=== PATIENT | female | born 1945 | race Caucasian/White ===

== ENCOUNTER → 2017-08-04 | Outpatient (CLI) | payer MEDICARE ==
--- NOTE | 2017-08-04 16:24 | MAM ---
EXAM DESCRIPTION: 3D Diagnostic, Bilateral: Digital Mammography CLINICAL HISTORY: 71 yearsFemale palpable mass lower outer quadrant left breast posterior. Patient noticed within the past week. No family history of breast cancer. Postmenopausal. COMPARISON: 2-D digital screening bilateral study 05/16/2014. Targeted left breast ultrasound following this examination.. No prior reports available. TECHNIQUE: Bilateral CC LM MLO projection full-field images, 3-D tomosynthesis digital mammographic technique. Also bilateral synthesized CC MLO LM full-field images. CAD not utilized. FINDINGS: The breast parenchymal density pattern is: Almost entirely fatty. No skin thickening or nipple retraction bilateral intramammary lymph nodes. Bilateral solitary microcalcifications. Mass in the posterior third of the left breast abutting the pectoral muscle with partially well-defined and lobulated borders. Solitary microcalcification. Dimensions are approximately 1.6 x 1.1 cm. Anterior borders are somewhat indistinct. Increased density compared to the surrounding mostly fatty tissues. Not present on the prior study. Skin marker placement lateral skin where mass is palpable. Coarse calcifications in the middle third of the breast associated with soft tissue density. Skin mole on the posterior medial inner left breast. Pacemaker in the left axilla abutting a lymph node. No focal, stellate mass or density, focal asymmetry , and no suspicious microcalcifications right breast. ULTRASOUND: Scanning of the 400 clock position of the left breast from the nipple to 6 cm posterior, where mass is palpable. Heterogeneous hypoechoic mass within 2 cm of the skin surface. No skin thickening. Mostly circumscribed margin with irregular and lobulated shape. Nonparallel orientation. Posterior edge shadowing with mostly posterior central enhancement. Minimally vascular. Dimensions are 2.7 x 2.4 cm. Differential includes reactive lymph node and neoplasm. IMPRESSION: BI-RADS CATEGORY 4: SUSPICIOUS. SUB-CATEGORY 4A - LOW SUSPICION FOR MALIGNANCY. Surgical consultation and tissue diagnosis should be considered. The FINDINGS and follow-up plan were reviewed in person with the patient following the examination. Written communication explaining the IMPRESSION and follow-up will be mailed to the patient and referring care provider. CRITICAL COMMUNICATION: The critical value was discussed directly by phone with Dr. Mcdonald at approximately 1615 hours, on August 04, 2017. Electronically signed by: Yousuf Martinez MD 08/04/2017 4:23 PM MANAGER CREDIT RISK
--- NOTE | 2017-08-04 16:25 | US ---
EXAM DESCRIPTION: Breast,Left: Ultrasound CLINICAL HISTORY: 71 yearsFemaleBREAST LUMP. Palpable on the lower outer quadrant left breast. COMPARISON: Digital 3-D tomosynthesis bilateral breasts on this visit TECHNIQUE: Transcutaneous scanning of the lower inner quadrant left breast utilizing two-dimensional and Doppler modes. Scanning performed by the contact lens cutter and Dr. Martinez. FINDINGS: Scanning of the 400 clock position of the left breast from the nipple to 6 cm posterior, where mass is palpable. Heterogeneous hypoechoic mass within 2 cm of the skin surface. No skin thickening. Mostly circumscribed margin with irregular and lobulated shape. Nonparallel orientation. Posterior edge shadowing with mostly posterior central enhancement. Minimally vascular. Dimensions are 2.7 x 2.4 cm. Differential includes reactive lymph node and neoplasm. IMPRESSION: 1. BI-RADS CATEGORY: 4 - SUSPICIOUS. SUB - CATEGORY 4A: LOW SUSPICION FOR MALIGNANCY. 2. Please refer to digital bilateral 3-D tomosynthesis diagnostic mammographic examination and report on this visit. The FINDINGS and the follow-up plan were reviewed in person with the patient after the examination. Written communication explaining the IMPRESSION and follow-up will be mailed to the patient and referring care provider. CRITICAL COMMUNICATION: The critical value was discussed directly by phone with Dr. Mcdonald at approximately 1615 hours, on August 04, 2017. Electronically signed by: Yousuf Martinez MD 08/04/2017 4:23 PM [facility]
== END | disposition home or self-care (01) ==
LOC: MAMMO 12:50
PROVIDERS: ATTEND General Practice
DX: N63.20 Unspecified lump in the left breast, unspecified quadrant (principal)
CPT/HCPCS: 76641; G0204; G0279

== ENCOUNTER → 2017-09-14 | Outpatient (CLI) | payer MEDICARE ==
--- NOTE | 2017-09-14 11:00 | OP ---
DATE OF PROCEDURE: 09/14/17 PREOPERATIVE DIAGNOSIS: 1. Abnormal left mammogram with mass at 4 o'clock. POSTOPERATIVE DIAGNOSIS: 1. Abnormal left mammogram with mass at 4 o'clock. PROCEDURE: 1. Sonographically guided needle core biopsy, left breast mass. SURGEON: Jose Carlos Wood MD. BILINGUAL KINDERGARTEN TEACHER: None. ANESTHESIA: Local infiltration of 1% lidocaine. INDICATION: The patient is a 71-year-old female who on mammography was found to have a mass at the 4 o'clock position. It was solid in nature. She was brought to the Ultrasound Suite today for biopsy. FINDINGS: The ultrasound device revealed the needle within the specimen on both the plain and 90 degree ultrasound pictures. Pathology is pending. PROCEDURE: The patient was placed in the supine position and the left arm was extended. The breast was examined and then the medial aspect of the breast was prepped with Betadine and painted. Local infiltration of anesthesia was obtained with 1% lidocaine and then a stab wound was made with a 15 blade and then multiple passes were made with the biopsy device and a small amount of tissue was obtained. Hemostasis was obtained with pressure. A simple suture was used to close the incision with 4-0 Nylon. When this was done, sterile pressure dressings were applied. The specimen was sent for pathologic evaluation. The patient tolerated the procedure well. Estimated blood loss was less than 5 mL. #[id number] [facility]
--- NOTE | 2017-09-14 18:00 | US ---
EXAM DESCRIPTION: Biopsy/Needle Guidance CLINICAL HISTORY: 71 years Female LEFT BREAST MASS COMPARISON: Diagnostic ultrasound of the left breast and diagnostic 3-D tomosynthesis mammogram on 08/04/2017. TECHNIQUE: The procedure was performed by Dr. Wood. Repeat ultrasound localized the lesion at the 9:00 position of the posterior left breast near the chest wall. Sterile preparation. Sterile ultrasound guidance. FINDINGS: The mass is well demonstrated on multiple images. Multiple images show the needle within the mass on orthogonal views. IMPRESSION: Successful, ultrasound-guided fine-needle core biopsy of left breast mass. Adequate core samples were obtained. Pathology examination at remote facility, results pending. Electronically signed by: Yousuf Martinez MD 09/14/2017 5:59 PM DURALUMIN METALWORKER Workstation: [id number]
== END | disposition home or self-care (01) ==
LOC: US 08:10
PROVIDERS: ATTEND Surgery
DX: N63.23 Unspecified lump in the left breast, lower outer quadrant (principal)

== ENCOUNTER → 2017-09-19 | Outpatient (CLI) | payer MEDICARE ==
--- NOTE | 2017-09-19 23:55 | RAD ---
Examination: XR CHEST 2 VIEWS dated 09/19/2017 3:18 PM LAW OFFICE ASSISTANT History: CA LT BREAST Comparison: 03/20/2015 Technique: Frontal and lateral views of the chest Findings: No pulmonary mass. No pneumothorax or pleural effusion. Aortic atherosclerosis. Normal cardiac silhouette. Left cardiac pacer. No large osseous lesion. Impression: No pulmonary masses. Electronically signed by: Robi uLong MD 09/19/2017 11:54 PM LAW OFFICE ASSISTANT
== END | disposition home or self-care (01) ==
LOC: LAB.O 14:55
PROVIDERS: ATTEND Surgery
DX: C50.512 Malignant neoplasm of lower-outer quadrant of left female breast (principal)

== ENCOUNTER → 2017-09-22 | Outpatient (CLI) | payer MEDICARE ==
--- NOTE | 2017-09-22 16:15 | RAD ---
EXAM DESCRIPTION: Chest,2 Views CLINICAL HISTORY: CANCER LEFT BREAST COMPARISON: September 19, 2017 FINDINGS: Frontal and lateral views of the chest. Dual-lead left chest cardiac pacemaker in stable position. Cardiac silhouette and pulmonary vascularity are within normal limits. Calcific atherosclerosis noted of the aortic arch. Lungs are clear without focal consolidative infiltrates. No pleural effusion. No pneumothorax. Cholecystectomy clips in the right upper abdominal quadrant. IMPRESSION: 1. No radiographic evidence of acute cardiopulmonary disease. 2. Other findings as above. Electronically signed by: David Shelby MD 09/22/2017 4:14 PM [facility]
== END | disposition home or self-care (01) ==
LOC: NM 08:23
PROVIDERS: ATTEND Surgery
DX: C50.512 Malignant neoplasm of lower-outer quadrant of left female breast (principal)

== ENCOUNTER → 2017-10-13 | Outpatient (CLI) | payer MEDICARE ==
--- NOTE | 2017-10-15 14:36 | RAD ---
EXAM DESCRIPTION: Knee,Left Complete CLINICAL HISTORY: 71 years Female, ABNORMAL BONE SCAN, BREAST CA COMPARISON: None. FINDINGS: 3 views of the left knee show no acute fracture or malalignment. The joint spaces are fairly well-maintained. There is a questionable left knee joint effusion. No focal bone lesion. IMPRESSION: Questionable left knee joint effusion, otherwise unremarkable exam. Electronically signed by: Roger Ricketts MD 10/15/2017 2:35 PM STORY EDITOR
--- NOTE | 2017-10-15 14:39 | RAD ---
EXAM DESCRIPTION: Lumbar Spine 3 Views CLINICAL HISTORY: 71 years Female, ABNORMAL BONE SCAN, BREAST CA COMPARISON: Bone scan September 22, 2017 FINDINGS: 3 views of the lumbar spine show compression of the L3 body, questionable acuity. No additional vertebral body fracture or subluxation is identified. There are moderate to moderately advanced degenerative changes at multiple levels in the lumbar spine including disc space narrowing at L2-3, L3-4 and L5-S1. Mural calcifications are present in the abdominal aorta without aneurysm. IMPRESSION: Compression deformity of the L3 body, questionable acuity. No definite activity at this level on recent bone scan, but findings are new from February,. MRI should be considered for further evaluation. Moderately advanced multilevel degenerative changes elsewhere in the lumbar spine including degenerative disc and facet joint disease. Atherosclerotic vascular disease. Electronically signed by: Roger Ricketts MD 10/15/2017 2:38 PM [facility]
== END ==
LOC: LAB.O 10:23
PROVIDERS: ATTEND Surgery
DX: C50.512 Malignant neoplasm of lower-outer quadrant of left female breast (principal); R93.7 Abnormal findings on diagnostic imaging of other parts of musculoskeletal system; M25.462 Effusion, left knee; M51.36 Other intervertebral disc degeneration, lumbar region; I70.0 Atherosclerosis of aorta

== ENCOUNTER 2017-10-21 05:44 | Inpatient (IN) | payer MEDICARE ==
[2017-10-21] MEDS ORDERED: SODIUM CHLORIDE 0.9% 50 ML VIAL ONE (07:00)
[2017-10-21] MEDS ORDERED: PROPOFOL 200 MG/20 ML VIAL IV ONE (07:00)
[2017-10-21] MEDS ORDERED: PHENYLEPHRINE INJ 1ML 10 MG/ML VIAL ONE (07:00)
[2017-10-21] MEDS ORDERED: LACTATED RINGERS 1,000 ML ONE ×2 (07:12→09:51)
[2017-10-21] MEDS ORDERED: levoFLOXacin 500MG IV 100 ML IVPB ONE (07:12)
[2017-10-21] MEDS ORDERED: fentaNYL CITRATE INJ 50 MCG/ML AMP ONE (07:56)
[2017-10-21] MEDS ORDERED: MIDAZOLAM INJ 2 MG/2 ML VIAL ONE (07:56)
[2017-10-21] MEDS ORDERED: LIDOCAINE 2 % GEL 5 ML TUBE TOP ONE (07:56)
[2017-10-21] MEDS ORDERED: ROCURONIUM BROMIDE 10 MG/ML VIAL ONE (07:57)
[2017-10-21] MEDS ORDERED: ONDANSETRON INJ 4 MG/2 ML VIAL IV PRN (12:37)
[2017-10-21] MEDS: MORPHINE SULFATE INJ 10 MG/ML VIAL IV PRN ×6 (13:04→18:35)
--- NOTE | 2017-10-21 13:06 | OP ---
DATE OF PROCEDURE: 10/21/17 PREOPERATIVE DIAGNOSIS: 1. Biopsy-proven carcinoma of the left breast. POSTOPERATIVE DIAGNOSIS: 1. Biopsy-proven carcinoma of the left breast. PROCEDURE: 1. Left modified radical mastectomy. SURGEON: Jose Carlos Wood MD. MARINA DRY DOCK MANAGER: None. ANESTHESIA: General laryngeal mask anesthesia. INDICATION: The patient is a 71-year-old female with biopsy-proven mucinous carcinoma of the left breast. Metastatic workup is believed to be negative. After discussion of the surgical options including the fact that she has a pacemaker on the left, she was brought to the Surgical Suite today for left modified radical mastectomy after the risks, benefits and alternatives to the procedure were discussed and accepted. FINDINGS: The mass was palpable, mobile and is within the specimen. There were also palpable nodes in the axilla. Long thoracic nerve of Mathews and thoracodorsal bundle were identified. At the end of the procedure, both the pacemaker worked and the nerves were stimulated proximally with the action of the muscles positively. PROCEDURE: The patient was brought to the Surgical Suite and placed in supine position. She underwent general laryngeal mask anesthesia. At this point, the magnet was placed on the patient and her rhythm changed to what appeared to be a ventricular tachycardia and her pressure dropped, however, after decreasing the anesthesia, the pressure came up. We then took the magnet off and there was no changed. At this point, she was prepped and draped in the usual sterile manner with the magnet in place. A surgical time-out was taken. At this point , an elliptical incision was fashioned around the biopsy site and the areolar. It was generally fashioned transversely with a slight uptake laterally. The superior incision was then made with a sharp knife. Dissection was carried down through the skin edges carefully with minimal cautery. [place] clamps were placed on the superior flap and the superior flap was taken medially to the sternum, superiorly to the clavipectoral fascia except inferiorly to the pacemaker. In the area of the pacemaker and the lateral aspect of the superior flap, Metzenbaum scissors were used for taking down the breast tissue. When this was done, a moist sponge was placed under the flap and the inferior flap was taken in a like manner down, first with a sharp knife and then with electrocautery using the [place] finely grasping forceps. This dissection was carried laterally into the axilla and inferiorly into the rectus fascia. When this was done, the breast was taken off the chest wall using a sharp knife generally and a minimal amount of electrocautery. Dissection was then carried laterally into the axilla. At this point, the superior portion of the axilla was dissected using blunt dissection and minimal electrocautery and also clamps and ligatures of 3-0 Vicryl. The vein was identified and then the thoracodorsal bundle and long thoracic nerve of Mathews were identified. The tissue inferior to the vein and between and anterior to the nerves was taken en bloc with the breast. When this was dissected from the field, it was taken off the field and placed in formalin. At this point, the wound was irrigated with saline. A few small active bleeders were controlled with electrocautery. At this point, the pacemaker magnet was removed and it went immediately back to a paced rhythm. The nerves, as noted, were stimulated proximally with traction of the muscles. At this point, two 15-Guamanian round RIK drains were introduced through stab wounds in the lower flap, one in the axilla , the other on the chest wall. They were sutured in place with 3-0 Nylon ligatures. When this was done, the wound was closed with running 3-0 Vicryl sutures. Once these were in place, the wound was irrigated through the incision and placed to suction drainage. The skin edges were approximated with a skin stapler. Sterile pressure dressing was applied. The patient was awakened and taken to the Recovery Room in stable condition. Estimated blood loss was approximately 250 to 300 mL. All sponge, needle and instrument counts were correct. #[id number] [facility]
--- NOTE | 2017-10-21 13:12 | HP ---
CHIEF COMPLAINT: Biopsy-proven carcinoma of the left breast. HISTORY OF PRESENT ILLNESS: The patient is a 71-year-old female who was found to have a left breast mass. Needle core biopsy revealed a mucinous carcinoma. Metastatic workup was negative. After lengthy discussions about possible treatments, she was brought to the Surgical Suite today for left modified radical mastectomy. PAST MEDICAL HISTORY: 1. Hypertension. 2. Arrhythmias. 3. Headaches. 4. Hard of hearing. 5. Chronic back pain. 6. Arthritis. 7. Pacemaker. PAST SURGICAL HISTORY: 1. Cholecystectomy. 2. Hysterectomy. 3. Pacemaker placement. ALLERGIES: PENICILLIN, ASPIRIN. FAMILY HISTORY: Noncontributory. SOCIAL HISTORY: No history of tobacco or alcohol abuse. REVIEW OF SYSTEMS: There has been no weight loss, no cough, no chest pain, no shortness of breath. She denies urinary symptoms or change in her bowel habits. PHYSICAL EXAMINATION: GENERAL: The patient is awake, alert, cooperative, in no acute distress. VITAL SIGNS: The patient is normotensive. HEENT: Sclerae nonicteric. Mucous membranes moist. NECK: Without adenopathy. BACK: Without CVA tenderness. CHEST: Right breast is without lesion. Left breast reveals a palpable mass at 4 o'clock that is mobile. There are no skin changes. There is a pacemaker in the infraclavicular area laterally on the left. There is no palpable lymphadenopathy in either axilla. LUNGS: Equal breath sounds bilaterally. HEART: Regular rhythm. ABDOMEN: Soft, benign without mass or megaly. PELVIC/RECTAL: Deferred. EXTREMITIES: Without cyanosis, clubbing or edema. LABORATORY: Hemoglobin 13, white count 6.1, neutrophils 65%, platelet count 270 ,000. Urine was essentially clear although it was concentrated at 1.030. Creatinine 0.84, potassium 3.7. Liver functions within normal limits other than alkaline phosphatase elevated at 141. EKG showed a normal sinus rhythm. Chest x-ray was clear. ASSESSMENT: 1. Biopsy-proven carcinoma of the left breast. PLAN: Admission for left modified radical mastectomy under general anesthesia. She will be given preoperative Levaquin due to her penicillin allergy. [facility][id number] [facility]
[2017-10-21] MEDS ORDERED: KETOROLAC TROMETHAMINE INJ 30 MG/ML VIAL ONE (13:31)
[2017-10-21] MEDS: LACTATED RINGERS 1,000 ML IVS PRN (16:30)
[2017-10-21] MEDS: ENOXAPARIN SODIUM 40 MG/0.4 ML SYG SUBCU SCH (20:17)
[2017-10-22] MEDS: LACTATED RINGERS 1,000 ML IVS PRN (02:28)
[2017-10-22] MEDS: MORPHINE SULFATE INJ 10 MG/ML VIAL IV PRN ×2 (02:28→08:23)
[2017-10-22] MEDS: PANTOPRAZOLE SODIUM TAB 40 MG PO SCH (06:00)
[2017-10-22] MEDS ORDERED: levoFLOXacin 500MG IV 500 MG in PREMIX BAG 1 BAG IVPB SCH (08:00)
[2017-10-22] MEDS ORDERED: levoFLOXacin 500MG IV 100 ML IVPB ONE (08:17)
[2017-10-22] MEDS: ENOXAPARIN SODIUM 40 MG/0.4 ML SYG SUBCU SCH (09:38)
[2017-10-22] MEDS: URSODIOL 250 MG PO SCH (10:48)
[2017-10-22] MEDS: LISINOPRIL 10 MG TAB PO SCH (10:50)
[2017-10-22] MEDS ORDERED: SODIUM CHLORIDE 0.9% (FLUSH) 10 ML SYG IV PRN (11:18)
[2017-10-22] MEDS ORDERED: IV SET AND CAP CHANGE INJ INJ SCH (11:30)
[2017-10-22] MEDS: HYDROcodone 5MG/APAP 325MG 1 EA TAB PO PRN (18:07)
[2017-10-22] MEDS: SODIUM CHLORIDE 0.9% (FLUSH) 10 ML SYG IV SCH (20:39)
[2017-10-22] MEDS ORDERED: MONTELUKAST 10 MG TAB PO SCH (21:00)
[2017-10-23] MEDS: HYDROcodone 5MG/APAP 325MG 1 EA TAB PO PRN ×2 (00:38→07:48)
[2017-10-23] MEDS: PANTOPRAZOLE SODIUM TAB 40 MG PO SCH (06:13)
[2017-10-23] MEDS: URSODIOL 250 MG PO SCH (08:30)
[2017-10-23 09:56] VITALS: O2SAT 97
[2017-10-23] MEDS: ENOXAPARIN SODIUM 40 MG/0.4 ML SYG SUBCU SCH (10:04)
[2017-10-23] MEDS: LISINOPRIL 10 MG TAB PO SCH (10:05)
[2017-10-23] MEDS: SODIUM CHLORIDE 0.9% (FLUSH) 10 ML SYG IV SCH (10:05)
[2017-10-23 14:18] VITALS: BP 89/61; TEMP 97.9
--- NOTE | 2017-10-23 19:46 | DS ---
FINAL DIAGNOSIS: 1. Carcinoma of the left breast, stage pending the pathology report. SURGICAL PROCEDURE: 1. Left modified radical mastectomy on 10/21/17 HISTORY OF PRESENT ILLNESS: The patient is a 71-year-old female who was found to have a left breast mass. Needle core biopsy revealed a mucinous carcinoma. Metastatic workup was negative. After lengthy discussions about possible treatments, she was brought to the Surgical Suite today for left modified radical mastectomy. LABORATORY: On the day prior to discharge, the hemoglobin was stable at 10.1. She had 64% neutrophils, 198 platelets. White count 5.2. Pathology report is pending. HOSPITAL COURSE: The patient was admitted to the Surgical Suite after receiving IV Levaquin. She underwent the modified radical mastectomy without significant complication. By the first postoperative day, she was tolerating clear liquids well. Her pain was controlled with oral medication. She was advanced to a regular diet and begun ambulation. Her J-P drainage was minimal, although there was some significant bruising noted. On the second postoperative morning, her dressing was changed. Her flaps appear to be intact , although as noted there was a large amount of ecchymosis. Her drains were bloody but with small amounts and for this reason they were not removed. She was rewrapped and after the dressing change she was discharged home. Condition on discharge is improved and stable, and is pending the pathology report. DISPOSITION: The patient will be followed-up by [facility]. They will see her tomorrow. I will see her Tuesday. She was discharged on a regular diet. Told she cannot shower or bath. She can ambulate and use her right arm as much as possible. She is to use her left elbow, left wrist and left fingers as much as she wishes. She had Tramadol at home and it will be the only pain medication unless she does not tolerate this. She is to resume her other home medications. She is also instructed to call me if she has any other questions or problems before her appointed visit. She is to call tomorrow to arrange that Tuesday meeting. [facility][id number] [facility]
== END 2017-10-23 12:30 | disposition home health service (06) | DRG 581 ==
LOC: AMB 05:44 → MS 14:10
PROVIDERS: ADMIT Surgery; ATTEND Surgery
PROC: 07B60ZX Excision of Left Axillary Lymphatic, Open Approach, Diagnostic (ICD-10-PCS; 2017-10-21)
PROC: 0HBU0ZZ Excision of Left Breast, Open Approach (ICD-10-PCS; principal; 2017-10-21 08:27)
DX: C50.512 Malignant neoplasm of lower-outer quadrant of left female breast (principal); I10 Essential (primary) hypertension; I49.9 Cardiac arrhythmia, unspecified; G89.29 Other chronic pain; M54.9 Dorsalgia, unspecified; H91.90 Unspecified hearing loss, unspecified ear; M19.90 Unspecified osteoarthritis, unspecified site; Z88.0 Allergy status to penicillin; Z88.6 Allergy status to analgesic agent; Z95.0 Presence of cardiac pacemaker; Z87.891 Personal history of nicotine dependence

== ENCOUNTER → 2018-09-13 | Outpatient (CLI) | payer MEDICARE ==
--- NOTE | 2018-09-15 13:27 | MAM ---
EXAM DESCRIPTION: 3D Screening, Right : Digital Mammography. CLINICAL HISTORY: 72 years Female SCREENING personal history of breast cancer on the left with mastectomy. February 2017. Lifetime risk of developing breast cancer (Tyrer-Cuzick model)(%): Not Calculated due to personal history of breast cancer. COMPARISON: Bilateral diagnostic digital breast tomosynthesis 08/04/2017.. TECHNIQUE: Right breast CC and MLO projection full-field images, digital tomosynthesis mammographic technique. Right breast digital 2-D full-field MLO images. CAD not available for tomosynthesis or 2-D images. FINDINGS: Right breast parenchymal density pattern is: Almost entirely fatty. No skin thickening or nipple retraction. Multiple solitary microcalcifications. Posterior intramammary lymph node. No new focal, stellate mass or density, focal asymmetry , and no suspicious microcalcifications right breast Stable mammograms compared to prior study. IMPRESSION: Benign exam. BIRAD CATEGORY: 2 BENIGN FINDINGS. RECOMMENDATIONS: FOLLOW UP: Routine digital right breast mammographic screening, one year interval from September 2017. Written communication explaining the IMPRESSION and follow-up, will be mailed to the patient and referring health care provider. According to the [employer], yearly mammograms are recommended starting at age 40 and continuing as long as a woman is in good health. Any breast change noted on a breast self-exam should be reported promptly to the patient's healthcare provider. Breast MRI is recommended for women with an approximately 20-25% or greater lifetime risk of breast cancer, including women with a strong family history of breast or ovarian cancer and women who have been treated for Hodgkin's disease. A negative mammographic report should not delay tissue diagnosis in patients with significant clinical history or physical findings. Extremely dense breast tissue limits the sensitivity of digital mammography. Electronically signed by: Yousuf Martinez MD 09/15/2018 1:25 PM DIRECTOR COMPLIANCE
== END ==
LOC: MAMMO 11:17
PROVIDERS: ATTEND Surgery
DX: Z12.31 Encounter for screening mammogram for malignant neoplasm of breast (principal)

== ENCOUNTER 2018-11-06 05:47 | Day surgery (SDC) | payer MEDICARE ==
[2018-11-06] MEDS ORDERED: TOBRAMYCIN SULF 0.3 % OPHT SOL 1 DROP LEFT_EYE ONE (05:48)
[2018-11-06] MEDS ORDERED: PROPARACAINE 0.5% OPHTH SOL 15 ML BTTL LEFT_EYE ONE (05:48)
[2018-11-06] MEDS ORDERED: TROP 1%/CYCLOPEN 1%/PHENYL 2% DROPS OPHTH ONE (05:48)
== END 2018-11-06 11:05 | disposition home or self-care (01) ==
LOC: AMB 05:47
PROVIDERS: ATTEND Ophthalmology
DX: H26.492 Other secondary cataract, left eye (principal); I10 Essential (primary) hypertension; Z88.5 Allergy status to narcotic agent; Z88.0 Allergy status to penicillin; Z88.8 Allergy status to other drugs, medicaments and biological substances